=== PATIENT | male | born 1980 | race Caucasian/White ===

== ENCOUNTER 2016-06-19 16:18 | Observation (INO) | payer OTHER ==
[~2016-06-19] VITALS: Ht 190.5 cm; Wt 127.0 kg
[~2016-06-19 16:18] MED LIST: ASPIRIN EC81 M1 PO; ATORVASTATIN CA10 M1 PO; CHLORTHALIDONE50 M1 PO; METOPROLOL SUCC50 M2 PO; PRILOSEC OTC20 M1 PO; VITAMIN B-121000 MC3 PO
--- NOTE | 2016-06-19 16:25 | NUR ---
36 Y/O MALE BIBA TO TRIAGE. C/O PERIUMBILICAL PAIN THIS AM, NOW BECOMMING SHARP RLQ PAIN. +NAUSEA AND DECREASED APPETITE/PO INTAKE. DENIES DIARRHEA. DENIES VOMITING. DENIES URINARY SYMPTOMS OR HEMATURIA. AFEBRILE. APPEARS UNCOMFORTABLE IN TRIAGE.
[2016-06-19 16:47] LABS: ABSOLUTE BASOPHIL COUNT 0 /CUMM (0.0-0.2); ABSOLUTE EOSINOPHIL COUNT 0.5 /CUMM (0.0-0.7); ABSOLUTE GRANULOCYTE CT 11.6 /CUMM (1.4-6.5); ABSOLUTE LYMPH COUNT 1.5 /CUMM (1.2-3.4); ABSOLUTE MONOCYTE COUNT 0.9 /CUMM (0.10-0.60); BASOPHIL % 0.2 % (0.0-2.0); EOSINOPHIL % 3.4 % (0-5); GRANULOCYTE % 79.8 % (42.2-75.2); HEMATOCRIT 50.9 % (42-52); MEAN CORPUSCULAR HGB 29.6 PG (27.0-31.0); MEAN CORPUSCULAR HGB CONC 34.1 G/DL (33.0-37.0); MEAN CORPUSCULAR VOLUME 86.6 FL (80.0-94.0); PLATELET COUNT 164 /CUMM (130-400); RBC DISTRIBUTION WIDTH 13.6 % (11.5-14.5); RED BLOOD CELL CT 5.88 /CUMM (4.70-6.10); WHITE BLOOD CELL COUNT 14.6 /CUMM (4.8-10.8)
--- NOTE | 2016-06-19 16:53 | NUR ---
RECIEVED TO FERMIN ERNANDEZ
--- NOTE | 2016-06-19 17:09 | NUR ---
SEEN BY YASMIN Alvarez
--- NOTE | 2016-06-19 17:22 | ED GI/GU/ABDOMINAL COMPLAINT ---
History of Present Illness General Chief Complaint: Abdominal Pain/Flank Pain Stated Complaint: BIBA WITH RG SIDE PAIN Source: patient Exam Limitations: no limitations Vital Signs & Intake/Output Vital Signs & Intake/Output Vital Signs Date Time Temp Pulse Resp B/P Pulse O2 O2 Flow FiO2 Ox Delivery Rate 06/19 1710 Room Air 06/19 1620 97.3 85 18 138/83 97 Room Air Allergies Uncoded Allergies: MOLD (12/05/11) Reconcile Medications Aspirin (Ecotrin*) 81 MG TABLET.DR 1 TAB PO DAILY HEART/BLOOD (Reported) Atorvastatin Calcium 10 MG TABLET 1 TAB PO DAILY CHOLESTEROL (Reported) Chlorthalidone 50 MG TABLET 1 TAB PO EOD BP (Reported) Docusate Sodium (Colace) 100 MG CAPSULE 1 CAP PO BID PRN CONSTIPATION STOOL SOFTENER AVAILABLE OVER THE COUNTER Metoprolol Succinate 50 MG TAB.ER.24H 1 TAB PO DAILY BP (Reported) [place]-3 Fatty Acids (Fish Oil) (Unknown Strength) CAPSULE 1 TAB PO DAILY SUPPLEMENT (Reported) Omeprazole Magnesium (Prilosec Otc) 20 MG TABLET.DR 1 TAB PO PRN GI (Reported ) Oxycodone HCl/Acetaminophen (Percocet 5-325 MG Tablet) 5 MG-325 MG TABLET 1-2 TAB PO Q4-6 PRN PAIN Triage Note: 36 Y/O MALE BIBA TO TRIAGE. C/O PERIUMBILICAL PAIN THIS AM, NOW BECOMMING SHARP RLQ PAIN. +NAUSEA AND DECREASED APPETITE/PO INTAKE. DENIES DIARRHEA. DENIES VOMITING. DENIES URINARY SYMPTOMS OR HEMATURIA. AFEBRILE. APPEARS UNCOMFORTABLE IN TRIAGE. Triage Nurses Notes Reviewed? yes HPI: 36-year-old male with severe right-sided abdominal pain, right lower quadrant region. Started at 3 AM this morning, woke him from sleep, it was periumbilical and as stated has progressed and migrated to the right lower quadrant. He had nausea at onset but none at this time, no fever, he has no appetite, pain is severe sharp right lower quadrant, nonradiating. He has severe pain with motion and palpation of the area, he had pain on the ride over, as the car was going over the bumps in the road he was getting severe pain. He was seen at a walk-in center and sent here for further evaluation. There is been no treatment thus far. His pain is constant and worsening steadily. No previous abdominal surgeries. He does note that almost every male in his family has had appendicitis (YASMIN ELLIOTT) Past History Travel History Traveled to [place] past 21 day No Medical History Any Pertinent Medical History? 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 No (YASMIN ELLIOTT) Review of Systems Review of Systems Constitutional: Reports: see HPI. EENTM: Reports: no symptoms. Respiratory: Reports: no symptoms. Cardiovascular: Reports: no symptoms. GI: Reports: see HPI. Genitourinary: Reports: no symptoms. Musculoskeletal: Reports: no symptoms. Skin: Reports: no symptoms. Neurological/Psychological: Reports: no symptoms. Hematologic/Endocrine: Reports: no symptoms. Immunologic/Allergic: Reports: no symptoms. All Other Systems: Reviewed and Negative (YASMIN ELLIOTT) Physical Exam Physical Exam General Appearance: well developed/nourished Gastrointestinal: decreased bowel sounds. Obese. Severe tenderness right lower quadrant, positive Rovsing sign, positive psoas sign, guarding is noted. Comments: Well-developed well-nourished Appears in mild distress, mildly uncomfortable HEENT: Atraumatic, extraocular motion intact Neck: Supple, no lymphadenopathy Back: Nontender Respiratory: No respiratory distress clear to auscultation bilateral. Heart: Regular rate and rhythm, no murmur Extremities: No edema, full range of motion Neuro: Alert and oriented x3 Psych: Mood affect normal, normal memory normal judgment. Skin: Warm and dry, no rash on exposed skin Core Measures ACS in differential dx? No Severe Sepsis Present: No Septic Shock Present: No (YASMIN ELLIOTT) Progress Differential Diagnosis: AAA, AMI, appendicitis, biliary colic, bowel obstruction , colon cancer, cholecystitis, diverticulitis, epididymitis, esophageal varices, gastritis, hepatitis, hernia, hemorrhoids, ischemic bowel, inflamm bowel dis, Lashae-Hernán tear, orchitis, pancreatitis, prostatitis, peptic ulcer, PUD/GERD, perforated viscous, pyelonephritis, SBO, STD, testicular torsion, ureterolithiasis, urinary retention, urethritis, UTI/pyelo Plan of Care: Orders Procedure Date/time Status LACTIC ACID 06/19 192 Active URINALYSIS 06/19 162 Active LACTIC ACID 06/19 162 Complete COMPREHENSIVE METABOLIC PANEL 06/19 162 Complete CBC WITHOUT DIFFERENTIAL 06/19 1623 Complete Laboratory Tests 06/19/16 1634: Anion Gap 11, Estimated GFR > 60, BUN/Creatinine Ratio 18.8, Glucose 102 H, Lactic Acid 0.8, Calcium 10.1, Total Bilirubin 0.8, AST 30, ALT 49, Alkaline Phosphatase 53, Total Protein 7.5, Albumin 4.6, Globulin 2.9, Albumin/Globulin Ratio 1.6, CBC w Diff NO MAN DIFF REQ, RBC 5.88, MCV 86.6, MCH 29.6, RDW 13.6, MPV 11.0 H, Gran % 79.8 H, Lymphocytes % 10.6 L, Monocytes % 6.0, Eosinophils % 3.4, Basophils % 0.2, Absolute Granulocytes 11.6 H, Absolute Lymphocytes 1.5, Absolute Monocytes 0.9 H, Absolute Eosinophils 0.5, Absolute Basophils 0, PUBS MCHC 34.1 Diagnostic Imaging: Viewed by Me: CT Scan. Discussed w/RAD: CT Scan. Radiology Impression: PATIENT: MADISON EDGE PRESENT AGE: 36 PATIENT ACCOUNT NO: [id number] : 81 LOCATION: [facility] ORDERING PHYSICIAN: YASMIN RALPH SERVICE DATE: 06/19/16 EXAM TYPE: CAT - CT ABD & PELVIS W IV CONTRAST EXAMINATION: CT ABDOMEN AND PELVIS WITH CONTRAST CLINICAL INFORMATION: Right lower quadrant abdominal pain. Evaluate for appendicitis. COMPARISON: None. TECHNIQUE: Multidetector volumetric imaging was performed of the abdomen and pelvis before and after the IV administration of 95 mL of Optiray 320 intravenous contrast. Sagittal and coronal reformatted images were obtained on the technologist's workstation. DLP: 1054 mGy-cm. FINDINGS: LUNG BASES: Pulmonary nodules are seen at both lung bases, some are partially visualized. There is a 0.5 cm right middle lobe nodule on image 1/114. There is a 0.4 cm left upper lobe lingular nodule on image 1/114. There is a subpleural 0.6 cm right middle lobe nodule on image 6/114. There is a 0.3 cm right lower lobe nodule on image 11/114. Additional smaller nodules are seen in both lungs. LIVER, GALLBLADDER, AND BILIARY TREE: The liver is normal in size, shape, and attenuation. No focal hepatic lesion or biliary ductal dilatation is present. The gallbladder is unremarkable with no evidence of radiopaque gallstones, gallbladder wall thickening, or obvious pericholecystic inflammatory changes. PANCREAS: Unremarkable. SPLEEN: Unremarkable. ADRENAL GLANDS: Unremarkable. KIDNEYS AND URETERS: The kidneys are normal in size, shape, and attenuation. No hydronephrosis, hydroureter, or calculi seen. Minimal bilateral perinephric stranding. BLADDER: Unremarkable. GASTROINTESTINAL TRACT: The stomach and small bowel appear unremarkable. No dilated loops of bowel or evidence of obstruction. The appendix is abnormal. It is dilated, measuring up to 1.3 cm in diameter. Mild adjacent inflammatory change is seen. No fluid collection. No free air. ABDOMINAL WALL: No significant hernia is appreciated. LYMPH NODES: Normal. VASCULAR: Unremarkable. PELVIC VISCERA: The prostate and seminal vesicles are unremarkable. OSSEOUS STRUCTURES: No acute or suspicious osseous abnormality. Mild sclerosis and osteophyte formation at the right sacroiliac joint. IMPRESSION: 1. Acute appendicitis. No fluid collection or free air. 2. Multiple pulmonary nodules are seen at the lung bases. Given the presence of multiple nodules, a nonemergent chest CT should be considered for more complete evaluation. DICTATED BY: SHYLA MEEKS,[place] DATE/TIME DICTATED:06/19/161821 HISTOTECHNOLOGIST SUPERVISOR:GUNNAR Initial ED EKG: none Comments: Treated with IV fluids, IV morphine [address] scan abdomen and pelvis with IV contrast, I am fairly certain he has appendicitis and have started him on antibiotics, 3 g of Unasyn IV upon initial evaluation. We'll continue to monitor reEvaluated, pain is improved, CT scan positive for appendicitis, discussed with kian PA, discussed with patient, will require appendectomy this evening (YASMIN ELLIOTT) Departure Departure Disposition: STILL A PATIENT Condition: Stable Clinical Impression Primary Impression: Acute appendicitis Qualifiers: Acute appendicitis type: with localized peritonitis Qualified Code: K35.3 - Acute appendicitis with localized peritonitis Referrals: BOB CURTIS MD (PCP/Family) Departure Forms: Customer Survey General Discharge Information Prescriptions: Current Visit Scripts Docusate Sodium (Colace) 1 CAP PO BID PRN CONSTIPATION 14 Days STOOL SOFTENER AVAILABLE OVER THE COUNTER Oxycodone HCl/Acetaminophen (Percocet 5-325 MG Tablet) 1-2 TAB PO Q4-6 PRN PAIN #30 TAB Admission Note Documentation of Exam: Documentation of any treatments & extenuating circumstances including Concerns Regarding Discharge (functional status, medication knowledge or non-compliance, living conditions, etc.) that warrant an admission rather than observation: OR/GI Note Spoke With: OMER MEEKS,VANNESSA Alvarez ED Treatment Decision: MADISON EDGE requires urgent operative management or an emergent procedure that cannot be performed in the Emergency Room setting. + acute appendicitis, to OR Transport To: [facility] (YASMIN ELLIOTT) PA/SAP HANA DEVELOPER Co-Sign Statement Statement: ED Attending supervision documentation- [] I saw and evaluated the patient. I have also reviewed all the pertinent lab results and diagnostic results. I agree with the findings and the plan of care as documented in the PA's/SAP HANA DEVELOPER's documentation. [X] I have reviewed the ED Record and agree with the PA's/SAP HANA DEVELOPER's documentation. [] Additions or exceptions (if any) to the PAs/SAP HANA DEVELOPER's note and plan are summarized below: [] (MINH MEEKS,HANNAH)
[2016-06-19] MEDS ORDERED: FISH OIL500 M1 PO (17:25)
--- NOTE | 2016-06-19 18:09 | NUR ---
PT WENT TO CT SCAN
--- NOTE | 2016-06-19 18:29 | CT SCAN REPORT ---
EXAMINATION: CT ABDOMEN AND PELVIS WITH CONTRAST CLINICAL INFORMATION: Right lower quadrant abdominal pain. Evaluate for appendicitis. COMPARISON: None. TECHNIQUE: Multidetector volumetric imaging was performed of the abdomen and pelvis before and after the IV administration of 95 mL of Optiray 320 intravenous contrast. Sagittal and coronal reformatted images were obtained on the technologist's workstation. DLP: 1054 mGy-cm. FINDINGS: LUNG BASES: Pulmonary nodules are seen at both lung bases, some are partially visualized. There is a 0.5 cm right middle lobe nodule on image 1/114. There is a 0.4 cm left upper lobe lingular nodule on image 1/114. There is a subpleural 0.6 cm right middle lobe nodule on image 6/114. There is a 0.3 cm right lower lobe nodule on image 11/114. Additional smaller nodules are seen in both lungs. LIVER, GALLBLADDER, AND BILIARY TREE: The liver is normal in size, shape, and attenuation. No focal hepatic lesion or biliary ductal dilatation is present. The gallbladder is unremarkable with no evidence of radiopaque gallstones, gallbladder wall thickening, or obvious pericholecystic inflammatory changes. PANCREAS: Unremarkable. SPLEEN: Unremarkable. ADRENAL GLANDS: Unremarkable. KIDNEYS AND URETERS: The kidneys are normal in size, shape, and attenuation. No hydronephrosis, hydroureter, or calculi seen. Minimal bilateral perinephric stranding. BLADDER: Unremarkable. GASTROINTESTINAL TRACT: The stomach and small bowel appear unremarkable. No dilated loops of bowel or evidence of obstruction. The appendix is abnormal. It is dilated, measuring up to 1.3 cm in diameter. Mild adjacent inflammatory change is seen. No fluid collection. No free air. ABDOMINAL WALL: No significant hernia is appreciated. LYMPH NODES: Normal. VASCULAR: Unremarkable. PELVIC VISCERA: The prostate and seminal vesicles are unremarkable. OSSEOUS STRUCTURES: No acute or suspicious osseous abnormality. Mild sclerosis and osteophyte formation at the right sacroiliac joint. IMPRESSION: 1. Acute appendicitis. No fluid collection or free air. 2. Multiple pulmonary nodules are seen at the lung bases. Given the presence of multiple nodules, a nonemergent chest CT should be considered for more complete evaluation.
--- NOTE | 2016-06-19 18:54 | NUR ---
RETURNED FROM CT SCAN. PT TOLD SURGERY CONSULSTED FOR ACUTE APPENDICITIS
--- NOTE | 2016-06-19 18:59 | NUR ---
RESTING IN STRETCHER. STATES PAIN IS MORE TOLERABLE AFTER MORPHINE. ABLE TO TALK. PT USING CELL PHONE
--- NOTE | 2016-06-19 19:30 | NUR ---
SURGICAL PA AT BEDSIDE TO EVAL PT
--- NOTE | 2016-06-19 19:41 | History & Physical Pre-Op ---
MINDA VARGAS 06/19/161939: General Information and HPI MD Statement: I have seen and personally examined MADISON EDGE and documented this H&P. The patient is a 36 year old M who presented with a patient stated chief complaint of ABDOMINAL PAIN. Source of Information: patient Exam Limitations: no limitations History of Present Illness: Pt is a 26 yo M with a pmh significant for obesity, HTN, HLD, Gerd, seasonal asthma, active smoker, who presented to the ED with c/o abdominal pain since 3 am today. He states that the pain started in the periumbilical region and eventually migrated to the RLQ. He has never had pain like this before. Reports 8/10 even after morphine. Pain is worsened with movement, coughing, and laughing. Denies fevers. Mild nausea, no emesis. CT performed in the ED was positive for acute appendicitis. Pt reports a significant family history of appendicitis with most men in his family. Otherwise denies ARTHUR, dizziness, CP, SOB, dysuria. Allergies/Medications Allergies: Uncoded Allergies: MOLD (12/05/11) Home Med list Aspirin (Ecotrin*) 81 MG TABLET.DR 1 TAB PO DAILY HEART/BLOOD (Reported) Atorvastatin Calcium 10 MG TABLET 1 TAB PO DAILY CHOLESTEROL (Reported) Chlorthalidone 50 MG TABLET 1 TAB PO EOD BP (Reported) Metoprolol Succinate 50 MG TAB.ER.24H 1 TAB PO DAILY BP (Reported) [place]-3 Fatty Acids (Fish Oil) (Unknown Strength) CAPSULE (Unknown Dose) PO DAILY SUPPLEMENT (Reported) Omeprazole Magnesium (Prilosec Otc) 20 MG TABLET.DR 1 TAB PO PRN GI (Reported ) Past History Medical History Neurological: NONE EENT: NONE Cardiovascular: hypertension, hyperlipidemia Respiratory: asthma (seasonal) Gastrointestinal: GERD Hepatic: NONE Renal: nephrolithiasis Musculoskeletal: NONE Psychiatric: NONE Endocrine: NONE Blood Disorders: NONE Cancer(s): NONE 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 Negative for fever, chills, headache, dizziness, chest pain, shortness of breath , palpitations, cough, congestion, constipation, diarrhea, dysuria, weakness. Exam & Diagnostic Data Last 24 Hrs of Vital Signs/I&O Vital Signs Date Time Temp Pulse Resp B/P Pulse O2 O2 Flow FiO2 Ox Delivery Rate 06/19 1858 97.8 64 16 152/82 98 Room Air 06/19 1710 Room Air 06/19 1620 97.3 85 18 138/83 97 Room Air Physical Exam: Gen.: Patient is resting, but easily arousable. He appears uncomfortable upon significant moving. Cardiac: Regular. No murmurs appreciated. Pulmonary: Lungs are clear bilaterally. Deep breathing is limited secondary to pain in the abdomen. Abdomen: Rounded, obese, not significantly distended. There is significant tenderness in the right lower quadrant. Positive rebound. No surgical scars are appreciated. Extremities: Warm, nontender. Last 24 Hrs of Labs/Zane: Laboratory Tests 06/19/161954: Urine Color Pending, Urine Clarity Pending, Urine pH Pending, Ur Specific [place] Pending, Urine Protein Pending, Urine Ketones Pending, Urine Nitrite Pending, Urine Bilirubin Pending, Urine Urobilinogen Pending, Ur Leukocyte Esterase Pending, Ur Microscopic Pending, Urine Hemoglobin Pending, Urine Glucose Pending 06/19/16 1634: Anion Gap 11, Estimated GFR > 60, BUN/Creatinine Ratio 18.8, Glucose 102 H, Lactic Acid 0.8, Calcium 10.1, Total Bilirubin 0.8, AST 30, ALT 49, Alkaline Phosphatase 53, Total Protein 7.5, Albumin 4.6, Globulin 2.9, Albumin/Globulin Ratio 1.6, CBC w Diff NO MAN DIFF REQ, RBC 5.88, MCV 86.6, MCH 29.6, RDW 13.6, MPV 11.0 H, Gran % 79.8 H, Lymphocytes % 10.6 L, Monocytes % 6.0, Eosinophils % 3.4, Basophils % 0.2, Absolute Granulocytes 11.6 H, Absolute Lymphocytes 1.5, Absolute Monocytes 0.9 H, Absolute Eosinophils 0.5, Absolute Basophils 0, PUBS MCHC 34.[address] Data Other Results CT scan of abdomen and pelvis revealed: 1. Acute appendicitis. No fluid collection or free air. 2. Multiple pulmonary nodules are seen at the lung bases. Given the presence of multiple nodules, a nonemergent chest CT should be considered for more complete evaluation. Assessment/Plan Assessment/Plan: Patient is a 36-year-old male with past medical history significant for obesity, hypertension, hyperlipidemia, GERD, seasonal asthma, active smoker, who has acute appendicitis. He remains hemodynamically stable, but has leukocytosis and is in significant pain. Plan: -Patient will require surgical intervention by way of laparoscopic appendectomy. -He has been nothing by mouth since 10 AM and will be kept nothing by mouth until surgery. -We'll start IV fluids center lead consultant to the OR. -Morphine as needed for pain. -Patient is hoping to be discharged after surgery, but understands that he may require overnight observation and discharge in the morning. -This was discussed with the patient and Rolando Stauffer MD. All are in agreement. As Ranked By This Provider Problem List: 1. Acute appendicitis OMER MEEKS,ROLANDO 06/19/162115: General Information and HPI MD Statement: I have seen and personally examined MADISON EDGE and documented this H&P. The patient is a 36 year old M who presented with a patient stated chief complaint of [right lower quadrant pain and underwent a workup by the physician manufacturing assistant including labs and CT scan all which were consistent with his physical exam and appendicitis I saw him personally in the emergency room examined the patient reviewed the CAT scan and labs and discussed with him risks versus benefits and possible complications a laparoscopic appendectomy including but not limited to bleeding infection patient consented to surgery].
--- NOTE | 2016-06-19 19:52 | NUR ---
PT UP TO BATHROOM TO DO HIBICLENS BATH
--- NOTE | 2016-06-19 21:16 | Operative Report ---
Operative/Inv Procedure Report Surgery Date: 06/19/16 Name of Procedure: Laparoscopic appendectomy Pre-Operative Diagnosis: acute appendicitis Post-Operative Diagnosis: same Estimated Blood Loss: less than 10cc Surgeon/Print Production Manager: Rolando Plata PA-C Anesthesia: general endotracheal tube, block IV Fluids: LR Urine Output: n/a Drains: n/a Specimens: appendix Microbiology: n/a Complications: none Condition: stable Operative/Procedure Note Note: After informed consent and proper identification patient was taken to the operating room placed on the operating table supine position. He underwent a general endotracheal anesthetic. A Kalyani block was performed. The abdomen was prepped and draped in normal sterile fashion infraumbilical incision was made with #11 blade down to the fascia the fascia was elevated between 2-0 Vicryl sutures and opened transversely with electrocautery under direct visualization a blunt port 12 mm Covidian cannula was inserted 2 additional trochars were placed 5 mm in the left lower quadrant the patient was placed in Trendelenburg we could visualize the appendix sticking straight up off of the cecum in the right lower quadrant we grabbed the mesoappendix using a Excision Scalpel Divided the Mesoappendix to the Base of the Cecum the Base of the Appendix and Cecum Were Normal the Rest of the Appendix Was Inflamed We Used a Surgical Stapler Endo HIREN 45 with White Load Cartridge to Staple across the Base of the Appendix Placed the Appendix in an Endo Catch Bag and Pulled It out through the Infraumbilical Port There Was No Significant Bleeding There Was No Purulent Material within the Abdominal Cavity Just a Little Bit of Exudate on the Appendix We Closed the Fascia with 0 Vicryl Suture We Closed Skin Incisions with 4-0 Monocryl Subcuticular Stitches Steri-Strips and Dry Sterile Dressings Were Placed. Patient Tolerated the Procedure without Complications Was Extubated Findings: acute nonperforated appendicitis Discharge Disposition: PACU
--- NOTE | 2016-06-19 22:44 | Admission Core Measures ---
Admission Lab Results I reviewed the following labs: Laboratory Tests 06/19 1634 Chemistry Sodium (137 - 145 mmol/L) 139 Potassium (3.5 - 5.1 mmol/L) 4.6 Chloride (98 - 107 mmol/L) 100 Carbon Dioxide (22 - 30 mmol/L) 28 Anion Gap (5 - 16) 11 BUN (9 - 20 mg/dL) 15 Creatinine (0.7 - 1.2 mg/dL) 0.8 Estimated GFR (>60 ml/min) > 60 BUN/Creatinine Ratio (7 - 25 %) 18.8 Glucose (65 - 99 mg/dL) 102 H Lactic Acid (0.7 - 2.1 mmol/L) 0.8 Calcium (8.4 - 10.2 mg/dL) 10.1 Total Bilirubin (0.2 - 1.3 mg/dL) 0.8 AST (17 - 59 U/L) 30 ALT (21 - 72 U/L) 49 Alkaline Phosphatase (< 127 U/L) 53 Total Protein (6.3 - 8.2 g/dL) 7.5 Albumin (3.5 - 5.0 g/dL) 4.6 Globulin (1.9 - 4.2 gm/dL) 2.9 Albumin/Globulin Ratio (1.1 - 2.2 %) 1.6 Hematology CBC w Diff NO MAN DIFF REQ WBC (4.8 - 10.8 /CUMM) 14.6 H RBC (4.70 - 6.10 /CUMM) 5.88 Hgb (14.0 - 18.0 G/DL) 17.4 Hct (42 - 52 %) 50.9 MCV (80.0 - 94.0 FL) 86.6 MCH (27.0 - 31.0 PG) 29.6 RDW (11.5 - 14.5 %) 13.6 Plt Count (130 - 400 /CUMM) 164 MPV (7.4 - 10.4 FL) 11.0 H Gran % (42.2 - 75.2 %) 79.8 H Lymphocytes % (20.5 - 51.1 %) 10.6 L Monocytes % (1.7 - 9.3 %) 6.0 Eosinophils % (0 - 5 %) 3.4 Basophils % (0.0 - 2.0 %) 0.2 Absolute Granulocytes (1.4 - 6.5 /CUMM) 11.6 H Absolute Lymphocytes (1.2 - 3.4 /CUMM) 1.5 Absolute Monocytes (0.10 - 0.60 /CUMM) 0.9 H Absolute Eosinophils (0.0 - 0.7 /CUMM) 0.5 Absolute Basophils (0.0 - 0.2 /CUMM) 0 PUBS MCHC (33.0 - 37.0 G/DL) 34.1 Urines Urine Color (YEL,AMB,STR) YEL Urine Clarity (CLEAR) CLEAR Urine pH (5.0 - 8.0) 6.0 Ur Specific [place] (1.001 - 1.035) 1.010 Urine Protein (NEG,<30 MG/DL) NEG Urine Ketones (NEG) 15 H Urine Nitrite (NEG) NEG Urine Bilirubin (NEG) NEG Urine Urobilinogen (0.1 - 1.0 EU/dl) 0.2 Ur Leukocyte Esterase (NEG) NEG Ur Microscopic EXAM NOT REQUIRED Urine Hemoglobin (NEG) NEG Urine Glucose (N MG/DL) NEG Admission Meds I reviewed the following Meds: Current Medications Sig/Raheem Start time Last Medication Dose Stop Time Status Admin Atorvastatin Calcium 10 MG 1700 06/20 1700 AC (Lipitor) Dextrose/Sodium 1,000 ML Q8H 06/19 2215 AC Chloride (D5W-1/2 Normal Saline 1000ML) Metoprolol Succinate 50 MG DAILY 06/20 1000 AC (Toprol Xl) Morphine Sulfate 4 MG Q4P PRN 06/19 2215 AC (Morphine) Omeprazole 20 MG DAILY AC 06/20 0700 AC (Prilosec) Oxycodone/ 1 TAB Q4P PRN 06/19 2215 AC Acetaminophen (Percocet) Oxycodone/ 2 TAB Q4P PRN 06/19 2215 AC Acetaminophen (Percocet) Acute Coronary Syndrome Inclusion Criteria ACS Diagnosis No Inpatient Core Measures LDL Reminder: If No, please order W/I first 24hr of stay Congestive Heart Failure Inclusion Criteria CHF Diagnosis No Cerebrovascular accident Inclusion Criteria CVA/TIA Diagnosis No Inpatient Core Measures Bedside Swallow Eval Reminder: If BSE failed, place ST order Antithrombotic Reminder: Order Antithrombotic Medication by end of day 2 Antithrombotic Reminder: Document Reason Antithrombotic Not ordered by end of day 2 AFIB/Flutter Reminder: If Present, add to problem list AFIB/Flutter Reminder: Order Anticoag Medication for pts with AFIB/Flutter Atherosclerosis Reminder: If Present, add to problem list LDL Reminder: If No, please order W/I first 24hr of stay PT Order Reminder: If No, please order Venous thromboembolism Inpatient Core Measures VTE Risk Factors: Acute medical illness, Obesity, Smoking, Surgery VTE Prophylaxis Ordered Inpt Mechanical (ALPS/TEDS) No Mech VTE prophylaxis d/t No contraindications No VTE Pharm Prophylaxis d/t No contraindications (<24 hour stay) Inclusion Criteria - Per Current guidelines, there needs to be overlap - treatment for the first 5 days of Warfarin therapy. - Parenteral Anticoagulation (IV or SC) needs to be - given along with Warfarin therapy. VTE Diagnosis No VTE Type NONE VTE Confirmed by (Test) NONE Problem List As ranked by this Provider includes Assessment & Plan 1. Acute appendicitis HOME MEDS Home Med List Aspirin (Ecotrin*) 81 MG TABLET.DR 1 TAB PO DAILY HEART/BLOOD (Reported) Atorvastatin Calcium 10 MG TABLET 1 TAB PO DAILY CHOLESTEROL (Reported) Chlorthalidone 50 MG TABLET 1 TAB PO EOD BP (Reported) Metoprolol Succinate 50 MG TAB.ER.24H 1 TAB PO DAILY BP (Reported) [place]-3 Fatty Acids (Fish Oil) (Unknown Strength) CAPSULE (Unknown Dose) PO DAILY SUPPLEMENT (Reported) Omeprazole Magnesium (Prilosec Otc) 20 MG TABLET.DR 1 TAB PO PRN GI (Reported )
[2016-06-19 22:48] VITALS: BP 138/84
--- NOTE | 2016-06-19 22:49 | Surg Short-stay <48hrs Dis Sum ---
Visit Information Visit Dates Admission Date: 06/19/16 Discharge Date: 06/20/16 Surgical Short Stay DC Summary Admission Diagnosis: ACUTE APPENDICITIS Final Diagnosis: SAME Procedure(s): 06/19/16 LAPAROSCOPIC APPENDECTOMY Summary/Significant Findings: Pt is a 36 yo M with a hx of htn, hld, gerd, smoker, asthma who was admitted to on 06/19/16 with acute abdominal pain, found to be due to acute appendicitis. He underwent laparoscopic appendectomy by Dr. Rolando Stauffer on the day of admission. He tolerated the procedure well and was transferred to the [facility] floor in stable condition. His diet was slowly advanced, pain was well controlled and he was cleared for discharge. Condition at Discharge: stable Discharge Disposition: home or self care Discharge instructions provided to patient/family: Yes Post discharge follow-up plan: No strenuous activity or heavy lifting, pushing or pulling > 10 lbs x 2 weeks. Follow up with Dr. Stauffer in 2 weeks.
[2016-06-19] MEDS ORDERED: PERCOCET 5-3251 EACH PO (22:52)
--- NOTE | 2016-06-19 22:55 | Patient Discharge Instructions ---
Discharge Instructions General Discharge Information You were seen/treated for: Acute Appendicitis You had these procedures: Laparoscopic appendectomy Watch for these problems: Fever greater than 101, dizziness, chest pain, shortness of breath, increased abdominal pain, severe constipation or diarrhea No bath, but you may shower: Yes Other wound care: You may remove Band-Aids on 06/20/2016 and shower as desired. Leave Steri- Strips in place until they fall off on their own. Diet Continue normal diet: Yes Activity Full Activity/No Limits: No Activity Self Limited: Yes Pounds, do NOT lift more than: 10 Other activity limits: No strenuous activity or heavy lifting, pushing, or pulling. No driving while using narcotics. Acute Coronary Syndrome Inclusion Criteria At DC or during hospital stay patient has or had the following: ACS DIAGNOSIS No Discharge Core Measures Meds if any: Prescribed or Continued at Discharge Meds if any: NOT Prescribed or Continued at Discharge Congestive Heart Failure Inclusion Criteria At DC or during hospital stay patient has or had the following: CHF DIAGNOSIS No Discharge Core Measures Meds if any: Prescribed or Continued at Discharge Meds if any: NOT Prescribed or Continued at Discharge Cerebrovascular accident Inclusion Criteria At DC or during hospital stay patient has or had the following: CVA/TIA Diagnosis No Discharge Core Measures Meds if any: Prescribed or Continued at Discharge Meds if any: NOT Prescribed or Continued at Discharge Venous thromboembolism Inclusion Criteria VTE Diagnosis No VTE Type NONE VTE Confirmed by (Test) NONE Discharge Core Measures - Per Current guidelines, there needs to be overlap - treatment for the first 5 days of Warfarin therapy. - If discharged on Warfarin prior to 5 days of - overlap therapy, the patient will need to be - assessed for post discharge needs including - *Post discharge parental anticoagulation - *Warfarin and/or parental anticoagulation education - *Follow up date to check INR post discharge At least 5 days overlap therapy as Inpatient No Meds if any: Prescribed or Continued at Discharge Note: Overlap Therapy is Warfarin and Anticoagulant Meds if any: NOT Prescribed or Continued at Discharge
[2016-06-20 00:22] VITALS: BP 106/58
--- NOTE | 2016-06-20 00:33 | PN- General Surgery ---
Subjective Subjective: Postop check Pt is now POD #0 s/p lap appendectomy. Pt has no major complaints at this time. Pain is well controlled with percocet. He is tolerating regular diet. No nausea or emesis. No flatus as of yet. Still awaiting void. Otherwise denies ARTHUR, dizziness, CP, sob. Objective Vital Signs and I&Os Vital Signs Date Time Temp Pulse Resp B/P Pulse O2 O2 Flow FiO2 Ox Delivery Rate 06/20 0022 99.1 72 19 106/58 06/19 2248 97.8 85 19 138/84 06/19 1858 97.8 64 16 152/82 98 Room Air 06/19 1710 Room Air 06/19 1620 97.3 85 18 138/83 97 Room Air Intake & Output 06/20 0800 06/20 0000 06/19 1600 06/19 0800 06/19 0000 06/18 1600 Intake Total 1100 Output Total Balance 1100 Intake, IV 1100 Patient 280 lb Weight Physical Exam: Gen: Pt is resting, but easily arousable. Cardiac: Regular. Pulmonary: CTA bilaterally. Abdomen: soft. nondistended. mild milad-incisional tenderness. No significant drainage on dressings. Assessment/Plan Assessment/Plan Pt is a 36 yo M with htn, hld, gerd, asthma, smoker, who is now POD #0 s/p laparoscopic appendectomy. Plan: -Continue to advance diet as tolerated. -Continue IVF until tolerating adequate po and voiding >300 ml per shift. -Ok to decrease frequency of vitals to q4h. -Pain control with percocet as needed. -Home meds resumed, including b reji. -No further antibiotics needed. -Plan for DC home in am with rx for Percocet if stable. Core Measures/Miscellaneous Venous Thromboembolism VTE Risk Factors: Acute medical illness, Obesity, Smoking, Surgery VTE Contraindications: No Contraindications VTE Prophylaxis Ordered Inpt Mechanical (ALPS/TEDS) VTE Diagnosis: No VTE Type: NONE VTE Confirmed by (Test): NONE Beta Reji Is Beta Reji a Home Med? Yes If Yes, Was This Ordered Today? Yes Antibiotics Is Patient on Antibiotics? No
--- NOTE | 2016-06-20 01:56 | NUR ---
LATE ENTRY NURSING NOTE: PT ARRIVED TO FLOOR VIA STRETCHER WITH GIRLFRIEND AND BROTHER AT HIS SIDE. PT AOX3, RA, IND. FLUSHED IV & STARTED IVF ORDERED. VSS, NEGATIVE FLATUS, HYPOACTIVE BS. 3 BANDAIDS TO ABDOMEN C/D/I. ASMINISTERED PAIN MED. PT ATE DINNER BROUGHT IN BY GIRLFRIEND. ORIENTED PT TO ROOM, BED IN LOWEST POSITION. GIRLFRIEND AT BEDSIDE AT THIS TIME. WILL CONTINUE TO MONITOR.
[2016-06-20 04:00] VITALS: BP 120/56
--- NOTE | 2016-06-20 06:25 | Admission Core Measures ---
Admission Lab Results I reviewed the following labs: Laboratory Tests 06/19 06/19 2304 1955 Chemistry Lactic Acid (0.7 - 2.1 mmol/L) 1.0 Urines Urine Color (YEL,AMB,STR) YEL Urine Clarity (CLEAR) CLEAR Urine pH (5.0 - 8.0) 6.0 Ur Specific [place] (1.001 - 1.035) 1.010 Urine Protein (NEG,<30 MG/DL) NEG Urine Ketones (NEG) 15 H Urine Nitrite (NEG) NEG Urine Bilirubin (NEG) NEG Urine Urobilinogen (0.1 - 1.0 EU/dl) 0.2 Ur Leukocyte Esterase (NEG) NEG Ur Microscopic EXAM NOT REQUIRED Urine Hemoglobin (NEG) NEG Urine Glucose (N MG/DL) NEG 06/19 1634 Chemistry Sodium (137 - 145 mmol/L) 139 Potassium (3.5 - 5.1 mmol/L) 4.6 Chloride (98 - 107 mmol/L) 100 Carbon Dioxide (22 - 30 mmol/L) 28 Anion Gap (5 - 16) 11 BUN (9 - 20 mg/dL) 15 Creatinine (0.7 - 1.2 mg/dL) 0.8 Estimated GFR (>60 ml/min) > 60 BUN/Creatinine Ratio (7 - 25 %) 18.8 Glucose (65 - 99 mg/dL) 102 H Lactic Acid (0.7 - 2.1 mmol/L) 0.8 Calcium (8.4 - 10.2 mg/dL) 10.1 Total Bilirubin (0.2 - 1.3 mg/dL) 0.8 AST (17 - 59 U/L) 30 ALT (21 - 72 U/L) 49 Alkaline Phosphatase (< 127 U/L) 53 Total Protein (6.3 - 8.2 g/dL) 7.5 Albumin (3.5 - 5.0 g/dL) 4.6 Globulin (1.9 - 4.2 gm/dL) 2.9 Albumin/Globulin Ratio (1.1 - 2.2 %) 1.6 Hematology CBC w Diff NO MAN DIFF REQ WBC (4.8 - 10.8 /CUMM) 14.6 H RBC (4.70 - 6.10 /CUMM) 5.88 Hgb (14.0 - 18.0 G/DL) 17.4 Hct (42 - 52 %) 50.9 MCV (80.0 - 94.0 FL) 86.6 MCH (27.0 - 31.0 PG) 29.6 RDW (11.5 - 14.5 %) 13.6 Plt Count (130 - 400 /CUMM) 164 MPV (7.4 - 10.4 FL) 11.0 H Gran % (42.2 - 75.2 %) 79.8 H Lymphocytes % (20.5 - 51.1 %) 10.6 L Monocytes % (1.7 - 9.3 %) 6.0 Eosinophils % (0 - 5 %) 3.4 Basophils % (0.0 - 2.0 %) 0.2 Absolute Granulocytes (1.4 - 6.5 /CUMM) 11.6 H Absolute Lymphocytes (1.2 - 3.4 /CUMM) 1.5 Absolute Monocytes (0.10 - 0.60 /CUMM) 0.9 H Absolute Eosinophils (0.0 - 0.7 /CUMM) 0.5 Absolute Basophils (0.0 - 0.2 /CUMM) 0 PUBS MCHC (33.0 - 37.0 G/DL) 34.1 Admission Meds I reviewed the following Meds: Current Medications Sig/Raheem Start time Last Medication Dose Stop Time Status Admin Atorvastatin Calcium 10 MG 1700 06/20 1700 AC (Lipitor) Metoprolol Succinate 50 MG DAILY 06/20 1000 AC (Toprol Xl) Morphine Sulfate 4 MG Q4P PRN 06/19 2215 AC (Morphine) Omeprazole 20 MG DAILY AC 06/20 0700 AC (Prilosec) Oxycodone/ 1 TAB Q4P PRN 06/19 2215 AC Acetaminophen (Percocet) Acute Coronary Syndrome Inclusion Criteria ACS Diagnosis No Inpatient Core Measures LDL Reminder: If No, please order W/I first 24hr of stay Congestive Heart Failure Inclusion Criteria CHF Diagnosis No Cerebrovascular accident Inclusion Criteria CVA/TIA Diagnosis No Inpatient Core Measures Bedside Swallow Eval Reminder: If BSE failed, place ST order Antithrombotic Reminder: Order Antithrombotic Medication by end of day 2 Antithrombotic Reminder: Document Reason Antithrombotic Not ordered by end of day 2 AFIB/Flutter Reminder: If Present, add to problem list AFIB/Flutter Reminder: Order Anticoag Medication for pts with AFIB/Flutter Atherosclerosis Reminder: If Present, add to problem list LDL Reminder: If No, please order W/I first 24hr of stay PT Order Reminder: If No, please order Venous thromboembolism Inpatient Core Measures VTE Risk Factors: Acute medical illness, Obesity, Smoking, Surgery VTE Prophylaxis Ordered Inpt Mechanical (ALPS[facility]EDS) [facility] d/t No contraindications No VTE Pharm Prophylaxis d/t No contraindications (<24 hour stay) Inclusion Criteria - Per Current guidelines, there needs to be overlap - treatment for the first 5 days of Warfarin therapy. - Parenteral Anticoagulation (IV or SC) needs to be - given along with Warfarin therapy. VTE Diagnosis No VTE Type NONE VTE Confirmed by (Test) NONE Problem List As ranked by this Provider includes Assessment & Plan 1. Acute appendicitis HOME MEDS Home Med List Aspirin (Ecotrin*) 81 MG TABLET.DR 1 TAB PO DAILY HEART/BLOOD (Reported) Atorvastatin Calcium 10 MG TABLET 1 TAB PO DAILY CHOLESTEROL (Reported) Chlorthalidone 50 MG TABLET 1 TAB PO EOD BP (Reported) Metoprolol Succinate 50 MG TAB.ER.24H 1 TAB PO DAILY BP (Reported) [place]-3 Fatty Acids (Fish Oil) (Unknown Strength) CAPSULE 1 TAB PO DAILY SUPPLEMENT (Reported) Omeprazole Magnesium (Prilosec Otc) 20 MG TABLET.DR 1 TAB PO PRN GI (Reported ) Oxycodone HCl/Acetaminophen (Percocet 5-325 MG Tablet) 5 MG-325 MG TABLET 1-2 TAB PO Q4-6 PRN PAIN
[2016-06-20] MEDS ORDERED: COLACE100 M1 PO (07:31)
--- NOTE | 2016-06-20 07:38 | PN- General Surgery ---
Subjective Subjective: No complaints. Pain controlled with percocet. Tolerated food last night. No nausea. Ambulating without difficulty. No dizziness. No shortness of breath. No chest pains. Eager to go home this morning. Objective Vital Signs and I&Os Vital Signs Date Time Temp Pulse Resp B/P Pulse O2 O2 Flow FiO2 Ox Delivery Rate 06/20 0400 97.9 80 19 120/56 92 Room Air 06/20 0022 99.1 72 19 106/58 06/19 2248 97.8 85 19 138/84 06/19 1858 97.8 64 16 152/82 98 Room Air 06/19 1710 Room Air 06/19 1620 97.3 85 18 138/83 97 Room Air Intake & Output 06/20 0800 06/20 0000 06/19 1600 06/19 0800 06/19 0000 06/18 1600 Intake Total 1500 1100 Output Total 950 Balance 550 1100 Intake, IV 500 1100 Intake, Oral 1000 Output, Urine 950 Patient 280 lb Weight Physical Exam: General - alert & oriented x 3. comfortable. no acute distress. Lungs - clear bilaterally. scattered expiratory wheezes. Cardiac - s1s2. reg. Abdomen - soft. dressings c/d/i. bowel sounds appreciated. Extremities - warm bilaterally. no c/c/e. calves soft and nontender b/l. Assessment/Plan Assessment/Plan Pt is a 36 yo M with htn, hld, gerd, asthma, smoker, who is now POD #1 s/p lap appendectomy tolerating clears and food. d/c ivf percocet prn pain control add colace bid oob/ambulating well no need for further antibiotics beta reji ordered (home med for htn) d/c home this morning will d/w Core Measures/Miscellaneous Venous Thromboembolism VTE Risk Factors: Acute medical illness, Obesity, Smoking, Surgery VTE Contraindications: No Contraindications VTE Prophylaxis Ordered Inpt Mechanical (ALPS/TEDS) VTE Diagnosis: No VTE Type: NONE VTE Confirmed by (Test): NONE Beta Reji Is Beta Reji a Home Med? Yes If Yes, Was This Ordered Today? Yes Antibiotics Is Patient on Antibiotics? No
== END 2016-06-20 08:30 ==
LOC: ENRESERVDT → ENRESERVTM → ERH 16:18 → ER-OR 16:25 → PACUH 22:00 → ENPENDDIS 22:00 → 2NB 22:20
PROVIDERS: Emergency Medicine; ADMIT Surgery
DX: K35.80 Unspecified acute appendicitis (principal); E66.9 Obesity, unspecified; I10 Essential (primary) hypertension; E78.5 Hyperlipidemia, unspecified; J45.909 Unspecified asthma, uncomplicated; F17.200 Nicotine dependence, unspecified, uncomplicated; K21.9 Gastro-esophageal reflux disease without esophagitis
CPT/HCPCS: 6040; 74177; 81003; 88304; 96365; 96375; G0378; J1170; J2250; J3010; J7042

== ENCOUNTER 2018-02-18 13:00 | Emergency (ER) | payer OTHER ==
[~2018-02-18] VITALS: Ht 190.5 cm; Wt 136.1 kg
[~2018-02-18 13:00] MED LIST changes: +COLACE100 M1 PO; +FISH OIL500 M1 PO; +PERCOCET 5-3251 EACH PO
[2018-02-18 15:45] LABS: ABSOLUTE BASOPHIL COUNT 0.1 /CUMM (0.0-0.2); ABSOLUTE EOSINOPHIL COUNT 0.4 /CUMM (0.0-0.7); ABSOLUTE GRANULOCYTE CT 6.5 /CUMM (1.4-6.5); ABSOLUTE LYMPH COUNT 2.1 /CUMM (1.2-3.4); ABSOLUTE MONOCYTE COUNT 0.7 /CUMM (0.10-0.60); BASOPHIL % 0.8 % (0.0-2.0); EOSINOPHIL % 3.9 % (0-5); GRANULOCYTE % 66.6 % (42.2-75.2); HEMATOCRIT 45.1 % (42-52); MEAN CORPUSCULAR HGB 30.7 PG (27.0-31.0); MEAN CORPUSCULAR VOLUME 87.8 FL (80.0-94.0); MEAN PLATELET VOLUME 9.4 FL (7.4-10.4); PLATELET COUNT 167 /CUMM (130-400); RBC DISTRIBUTION WIDTH 13.4 % (11.5-14.5); RED BLOOD CELL CT 5.14 /CUMM (4.70-6.10); WHITE BLOOD CELL COUNT 9.8 /CUMM (4.8-10.8)
--- NOTE | 2018-02-18 19:40 | ED AMS/SEIZURE/WEAK/DIZZY ---
History of Present Illness General Chief Complaint: General Adult Stated Complaint: PT WAS SENT BY Source: patient Exam Limitations: no limitations Vital Signs & Intake/Output Vital Signs & Intake/Output Vital Signs Date Time Temp Pulse Resp B/P B/P Pulse O2 O2 Flow FiO2 Mean Ox Delivery Rate 02/18 1306 98.5 100 18 147/92 97 Room Air Allergies Uncoded Allergies: MOLD (12/05/11) Reconcile Medications Aspirin (Ecotrin*) 81 MG TABLET.DR 1 TAB PO DAILY HEART/BLOOD (Reported) Atorvastatin Calcium 10 MG TABLET 1 TAB PO DAILY CHOLESTEROL (Reported) Chlorthalidone 50 MG TABLET 1 TAB PO EOD BP (Reported) Docusate Sodium (Colace) 100 MG CAPSULE 1 CAP PO BID PRN CONSTIPATION STOOL SOFTENER AVAILABLE OVER THE COUNTER Metoprolol Succinate 50 MG TAB.ER.24H 1 TAB PO DAILY BP (Reported) [place]-3 Fatty Acids (Fish Oil) (Unknown Strength) CAPSULE 1 TAB PO DAILY SUPPLEMENT (Reported) Omeprazole Magnesium (Prilosec Otc) 20 MG TABLET. 1 TAB PO PRN GI (Reported ) Oxycodone HCl/Acetaminophen (Percocet 5-325 MG Tablet) 5 MG-325 MG TABLET 1-2 TAB PO Q4-6 PRN PAIN Triage Note: 37 Y/O MALE SENT BY DR MEEHAN FOR EVAL OF WORSENING R EAR PAIN, R JAW PAIN AND "VERTIGO" X 2-3 WEEKS. PT STATES IT STARTED WITH A RIGHT EAR INFECTION; PT WAS PLACED ON ANTIBIOTICS BUT CONTINUES TO HAVE SYMPTOMS. STATES HE NOW HAS ONGOING PAIN IN R TMJ AREA AND R JAW. ALSO STATES EXTREME LETHARGY, "JUST THE WALK HERE MAKES ME WANT TO GO TO SLEEP". PT REPORTS "A CONSTANT FEELING OF SURREALNESS". PT DENIES INJURIES OR TRAUMA TO HEAD. SPEAKING CLEARLY WITH NO DEFICITS NOTED. AFEBRILE DENIES RECENT RASHES, BUG BITES OR OTHER AILMENTS. Triage Nurses Notes Reviewed? yes HPI: 37 YO WM who was treated for right otitis media due to ear pain by his PCP around day with [place] and noticed marked improvement, then had recurrent right ear pain that was treated with Moxifloxin to which he developed worsening symptoms of vertigo. Patient followed up with an ENT who was reportedly unsure of the cause of his symptoms. Patient referred here by his PCP for additional testing. Patient denies true vertigo, but has noted pain to the right TMJ area and anterior neck. Denies fever, headache, N/V, or other symptoms at this time. Has been out of work for two weeks due to these symptoms. Past History Travel History Traveled to [place] past 21 day No Medical History Any Pertinent Medical History? see below for history Neurological: NONE EENT: NONE Cardiovascular: hypertension, hyperlipidemia Respiratory: asthma (seasonal) Gastrointestinal: GERD Hepatic: NONE Renal: nephrolithiasis Musculoskeletal: NONE Psychiatric: NONE Endocrine: NONE Blood Disorders: NONE Cancer(s): NONE FOREST PATROLMAN/Reproductive: NONE History of MRSA: No History of VRE: No History of CDIFF: No Surgical History Surgical History: none Psychosocial History What is your primary language Yi Tobacco Use: Quit <30 days ago Family History Hx Contributory? No Review of Systems Review of Systems Constitutional: Reports: see HPI. Denies: no symptoms, chills, diaphoresis, fever, malaise, weakness, unexplained weight loss. Physical Exam Physical Exam General Appearance: well developed/nourished, no apparent distress, alert, awake Head: atraumatic, normal appearance Eyes: Bilateral: normal appearance, PERRL, EOMI (no nystagmus). Respiratory: no respiratory distress, quiet respiration Cardiovascular: regular rate/rhythm Neurologic/Psych: awake, alert, oriented x 3 Core Measures ACS in differential dx? No CVA/TIA Diagnosis No Sepsis Present: No Sepsis Focused Exam Completed? No Progress Differential Diagnosis: arrythmia, anemia, benign positional vertigo, dehydration, electrolyte imbalance, meningitis, Meniere's disease, adverse drug reaction Plan of Care: Orders Procedure Date/time Status URINALYSIS 02/18 1318 Active TROPONIN LEVEL 02/18 131 Complete COMPREHENSIVE METABOLIC PANEL 02/18 1318 Complete CBC WITHOUT DIFFERENTIAL 02/18 1318 Complete EKG 02/18 1318 Active Laboratory Tests 02/18/18 1530: Anion Gap 9, Estimated GFR > 60, BUN/Creatinine Ratio 22.9, Glucose 85, Calcium 9.6, Total Bilirubin 0.5, AST 23, ALT 44, Alkaline Phosphatase 44, Troponin I < 0.01, Total Protein 6.7, Albumin 4.3, Globulin 2.4, Albumin/Globulin Ratio 1.8, CBC w Diff NO MAN DIFF REQ, RBC 5.14, MCV 87.8, MCH 30.7, MCHC 35.0, RDW 13.4, MPV 9.4, Gran % 66.6, Lymphocytes % 21.5, Monocytes % 7.2, Eosinophils % 3.9, Basophils % 0.8, Absolute Granulocytes 6.5, Absolute Lymphocytes 2.1, Absolute Monocytes 0.7 H, Absolute Eosinophils 0.4, Absolute Basophils 0.1 Initial ED EKG: normal axis, normal intervals, normal p-waves, normal QRS complex, normal sinus rhythm, NSR Comments: Given patient's symptoms worsened after starting Moxifloxin, concern was raised for an adverse drug reaction, versus TMJ,. versus Eagles syndrome. He had previously been referred to a neurologist but does not have a name, therefore [facility] will refer him. Patient given Valium and Motrin as trial for symptomatic relief. Departure Departure Time of Disposition: 1937 Disposition: HOME OR SELF CARE Condition: Stable Clinical Impression Primary Impression: Right ear pain Secondary Impressions: Adverse reaction to drug Qualifiers: Encounter type: initial encounter Qualified Code: T50.905A - Adverse effect of unspecified drugs, medicaments and biological substances, initial encounter Dizziness, nonspecific Referrals: Linda Meehan MD (PCP/Family) Departure Forms: Customer Survey General Discharge Information
[2018-02-18] MEDS ORDERED: VALIUM2 M1 PO (19:42)
[2018-02-18] MEDS ORDERED: VALIUM10 M1 PO (20:00)
[2018-02-18 20:17] VITALS: BP 125/74
== END 2018-02-18 20:58 ==
LOC: ERH 13:00
PROVIDERS: Physician Assistant Medical
DX: H92.01 Otalgia, right ear (principal); R42 Dizziness and giddiness
CPT/HCPCS: 81001; 93005; 93010; J3360